=== PATIENT | female | born 1970 | race Caucasian/White ===

== ENCOUNTER 2019-02-05 05:37 | Day surgery (SDC) | payer BC ==
[~2019-02-05 05:37] MED LIST: Buffered Lidocaine 1% SYRIN* 1 ML/SYRINGE INTRADERM ONE
[2019-02-05] MEDS ORDERED: Famotidine IV* 10 MG/ML 2 ML (20 mg) IV ONE (06:00)
[2019-02-05] MEDS ORDERED: Lactated Ringers 1000 ML Bag* 1,000 ML IV SCH (06:00)
[2019-02-05] MEDS ORDERED: ceFAZolin 2 GM in NS PREMIX(*) 2 GM/100 ML BAG IVPB ONE (06:08)
[2019-02-05] MEDS ORDERED: Famotidine IV* 10 MG/ML 2 ML (20 mg) ONE (06:08)
[2019-02-05] MEDS ORDERED: Buffered Lidocaine 1% SYRIN* 1 ML/SYRINGE INTRADERM ONE (06:08)
[2019-02-05] MEDS ORDERED: ceFAZolin 1 GM in Dextrose (*) 0 GM/0 ML BAG IVPB ONE (06:08)
[2019-02-05] MEDS ORDERED: Bupivacaine 0.5%* 50 ML VIAL ONE (06:41)
[2019-02-05] MEDS ORDERED: EPINEPHRINE 1 MG/ML 1 ML VIAL ONE (06:41)
[2019-02-05] MEDS ORDERED: methylPREDNISolone ACETATE 80* 80 MG/ML 1 ML VIAL ONE (06:41)
[2019-02-05] MEDS ORDERED: ROPIVACAINE 5 MG/ML 30 ML BTL (0.5%) ONE (06:42)
[2019-02-05] MEDS ORDERED: Ondansetron INJ* 2 MG/ML VIAL ONE ×2 (07:04→10:25)
[2019-02-05] MEDS ORDERED: fentaNYL* 50 MCG/ML 2 ML VIAL (100 MCG VIAL) ONE ×2 (07:04→08:43)
[2019-02-05] MEDS ORDERED: Propofol* 10 MG/ML 20 ML BTL ONE (07:04)
[2019-02-05] MEDS ORDERED: Dexamethasone IV* 4 MG/ML 1 ML (4 MG) ONE (07:04)
[2019-02-05] MEDS ORDERED: Lidocaine 2% MPF* 2 ML VIAL ONE (07:04)
[2019-02-05] MEDS ORDERED: Ketorolac INJ* 30 MG/ML 1 ML VIAL ONE (07:05)
[2019-02-05] MEDS ORDERED: Midazolam* 1 MG/ML 5 ML VIAL (5 MG) ONE (07:05)
[2019-02-05] MEDS ORDERED: Ondansetron INJ* 2 MG/ML VIAL IV PRN (08:07)
[2019-02-05] MEDS ORDERED: Naloxone* 0.4 MG/ML 1 ML VIAL IV PRN (08:07)
[2019-02-05] MEDS: fentaNYL* 50 MCG/ML 2 ML VIAL (100 MCG VIAL) IV PRN ×4 (08:44→09:54)
[2019-02-05] MEDS ORDERED: traMADol TAB* 50 MG ONE (09:04)
[2019-02-05] MEDS ORDERED: Acetaminophen TAB* 325 MG ONE (10:25)
[2019-02-05 11:11] VITALS: BP 110/69
--- NOTE | 2019-02-06 01:26 | OP ---
DATE OF OPERATION: 02/05/19 [facility] DATE OF : 70 SURGEON: Melisa Feng MD. LATHE MECHANIC: LATRICIA Booth. Mr. Mansfield did help throughout the procedure with preparation of the leg, wound retraction, manipulation of the knee, and wound closure. ANESTHESIOLOGIST: Dr. Magdaleno. ANESTHESIA: General. PRE-OP DIAGNOSIS: Left knee pain with lateral meniscal tear and patellar chondromalacia. POST-OP DIAGNOSIS: Left knee pain with lateral meniscal tear and patellar chondromalacia with anterior synovitis. OPERATIVE PROCEDURE: Left knee arthroscopy with partial lateral meniscectomy, patellofemoral chondroplasty, anterior synovectomy. SPECIMEN: None. ESTIMATED BLOOD LOSS: Less than 25 cc. COMPLICATIONS: None. BRIEF HISTORY/INDICATION: Ms. Frank is a 48-year-old female who has been unable to run because of lateral joint line mechanical symptoms and peripatellar pain. Her MRI did show lateral meniscal tear as well as some chondromalacia patella. Conservative treatment failed the patient. She elected to undergo left knee arthroscopy with partial meniscectomy, possible chondroplasty, possible synovectomy. Informed consent was obtained from the patient. She understood the risks of surgery included, but were not limited to , bleeding, infection, damage to nearby structures, continued pain, need for further surgery, re-tear of the meniscus, progression of arthritis, stroke, heart attack, blood clot, and . She wished to proceed. INTRAOPERATIVE FINDINGS: Intraoperatively, the patient had a radial type tear at the posterior horn of her lateral meniscus. She had some grade 3 and 4 Out[place]bridge cartilage changes mainly involving the lateral patellar facet with some frayed cartilage here. She had a significant amount of anterior synovitis. DESCRIPTION OF PROCEDURE: Ms. Frank was identified in the preanesthesia unit. Her left lower extremity was marked as the correct operative site. Informed consent was signed and placed in the chart. The patient was taken to the operating room and placed under anesthesia. Left lower extremity was prepped and draped in the usual sterile fashion. Preop time-out was made to correctly identify the patient's side and site. Appropriate perioperative antibiotics were given within 1 hour of incision. A 0.5 cm anterolateral portal incision was made with a 10 blade, carried down to the capsule. As soon as the trocar was introduced, the light and water sources were turned on. Immediate visualization of the knee was made possible. A tour of the knee joint was performed. Suprapatellar pouch had no obvious abnormalities. Patellofemoral compartment showed some frayed cartilage along the lateral patellar facet with extensive chondral bone here. These were grade 3 and 4 Outerbridge cartilage changes. The medial gutter had no loose body or significant plica. The anterior joint line had a significant amount of synovitis. Medial compartment showed no significant changes of the cartilage. Meniscus appeared to be intact. ACL and PCL appeared to be intact. The knee was placed in the [id number] position. Lateral meniscus had an obvious radial type tear along the posterior horn of the lateral meniscus. There were minimal degenerative changes noted. Lateral gutters showed no abnormality or loose body. Under direct visualization, a medial portal incision was made with a 10-blade. Probe was introduced. A second tour of the knee joint was performed. There were no additional findings. Radiofrequency ablation wand and shaver were used to perform an anterior synovectomy. Any soft tissue or synovitis which impinged along the patellofemoral joint with range of motion was cleared. Next , the straight biter and shaver were used to perform partial lateral meniscectomy. The radial type tear was excised from the white-red zone. A smoother border of the meniscus was obtained. Radiofrequency ablation wand was then used to smooth any frayed cartilage along the lateral patellar facet. Chondroplasty was performed in a conservative fashion. The knee was copiously irrigated with sterile saline. Instruments were carefully removed. The incisions were closed using 3-0 nylon suture. Sterile Xeroform, 4x4s, and Webril were used to cover the incision. Nikos wrap and cold pack were placed over this. The patient's anesthesia was reversed without difficulty. She was taken to the PACU in stable condition. Intended weightbearing will be weightbearing as tolerated. Intended DVT prophylaxis will be aspirin. [id number]/[facility] #: [id number] JUANJO
== END 2019-02-05 11:47 | disposition home or self-care (01) ==
LOC: OR 05:37
PROVIDERS: ATTEND Orthopaedic Surgery Adult Reconstructive Orthopaedic Surgery
DX: S83.282A Other tear of lateral meniscus, current injury, left knee, initial encounter (principal); M65.862 Other synovitis and tenosynovitis, left lower leg; M17.12 Unilateral primary osteoarthritis, left knee; M25.462 Effusion, left knee; X58.XXXA Exposure to other specified factors, initial encounter; Y92.9 Unspecified place or not applicable
CPT/HCPCS: 81025; A9270-GY; J0690; J1040; J1100; J1885; J2250; J2405; J2704; J2795; J3010